=== PATIENT | male | born 1990 | race Caucasian/White ===

== ENCOUNTER → 2021-01-26 | Outpatient (CLI) | payer OTHER | END | disposition home or self-care (01) | LOC: COVID19 16:33 | PROVIDERS: ATTEND Internal Medicine | DX: Z11.52 Encounter for screening for COVID-19 (principal); Z20.822 Contact with and (suspected) exposure to COVID-19 ==

== ENCOUNTER 2021-10-11 12:46 | Emergency (ER) | payer SELFPAY ==
[~2021-10-11] VITALS: Ht 172.7 cm; Wt 68.0 kg
[2021-10-11 14:07] LABS: ALKALINE PHOSPHATASE 114 U/L (45-117); BUN 17 mg/dl (7-24); CHLORIDE 110 mmol/L (98-107); CREATININE 1.04 mg/dL (0.70-1.30); LIPASE 260 U/L (73-393); POTASSIUM 2.8 mmol/L (3.5-5.1); SGOT/AST 26 IU/L (3-35); SGPT/ALT 24 U/L (12-78); SODIUM 138 mmol/L (136-145); TOTAL PROTEIN 7.4 gm/dL (6.4-8.2)
[2021-10-11 14:45] LABS: BASO % 0.6 % (0.0-1.0); EOS # 0.1 10*3/uL (0.0-0.4); EOS % 1.7 % (1.0-4.0); HEMATOCRIT 47.8 % (42.0-52.0); LYMPH # 1.1 10*3/uL (1.3-4.4); LYMPH % 15.3 % (27.0-41.0); MEAN CELL VOLUME 83.1 fl (80.0-94.0); MEAN CORPUSCULAR HGB 30.3 pg (27.0-31.0); MEAN CORPUSCULAR HGB CONC 36.4 g/dl (33.0-37.0); MEAN PLATELET VOLUME 9.6 fl (9.6-12.3); MONO # 0.9 10*3/uL (0.1-1.0); MONO % 12.2 % (3.0-9.0); NEUT % 69.6 % (47.0-73.0); PLATELET COUNT AUTOMATED 256 10*3/uL (130-400); RED BLOOD COUNT 5.75 10*6/uL (4.50-5.90); RED CELL DISTRI WIDTH 12.2 % (0-14.5); WHITE BLOOD COUNT 7.1 10*3/uL (4.8-10.8)
[2021-10-11] MEDS ORDERED: METRONIDAZOLE500 M1 PO (16:01)
[2021-10-11] MEDS ORDERED: ZITHROMAX500 MG PO (16:01)
[2021-10-11] MEDS ORDERED: Ondansetron4 MG PO (16:01)
[2021-10-11] MEDS ORDERED: ANTI-DIARRHEAL2 MG PO (16:01)
[2021-10-11] MEDS ORDERED: POTASSIUM CHLO20 ME3 PO (16:04)
== END 2021-10-11 16:07 | disposition home or self-care (01) ==
LOC: ED 12:46
PROVIDERS: Nurse Practitioner Family
DX: E87.6 Hypokalemia (principal); E86.0 Dehydration; L03.116 Cellulitis of left lower limb; Z23 Encounter for immunization

== ENCOUNTER 2021-10-16 01:43 | Emergency (ER) | payer SELFPAY ==
[~2021-10-16] VITALS: Ht 170.1 cm; Wt 68.0 kg
[~2021-10-16 01:43] MED LIST: ANTI-DIARRHEAL2 MG PO; METRONIDAZOLE500 M1 PO; Ondansetron4 MG PO; POTASSIUM CHLO20 ME3 PO; ZITHROMAX500 MG PO
== END 2021-10-16 03:25 | disposition left against medical advice (07) ==
LOC: ED 01:43
DX: R10.11 Right upper quadrant pain (principal)